=== PATIENT | female | born 1995 ===

== ENCOUNTER 2018-11-03 08:30 | Emergency (ER) | payer MEDICAID ==
[2018-11-03 08:40] VITALS: RESP 18; TEMP 97.9
[2018-11-03] MEDS ORDERED: Sodium Chloride 0.9% 500 ML IV STA (08:44)
--- NOTE | 2018-11-03 08:51 | ED PDOC ---
Arrival/HPI - General Chief Complaint: Abdominal Pain Time Seen by Provider: 11/03/18 08:43 Historian: Patient - History of Present Illness Narrative History of Present Illness (Text): 11/03/18 08:47 Ashley Alexis is a 23 year old female, with no significant past medical history, P:0, currently 6 weeks , who presents to the Emergency department for vaginal spotting. Patient states she was seen at the [facility] department on 11/01/2018 for vaginal bleeding, had a transvaginal US performed, and was discharged/advised to follow-up with OBGYN. Patient states she continues to have some vaginal spotting with associated mild lower abdominal cramping, became concerned, and came in for further evaluation. Patient denies any fever, nausea, vomiting, urinary symptoms, back pain, headache, dizziness, or any other complaints. Symptom Onset: Gradual Symptom Course: Unchanged Activities at Onset: Light Context: Home Past Medical History - Provider Review Nursing Documentation Reviewed: Yes - Psychiatric Hx Substance Use: No Family/Social History - Physician Review Nursing Documentation Reviewed: Yes Family/Social History: Unknown Family HX Smoking Status: Former Smoker Hx Alcohol Use: Yes Frequency of alcohol use: Socially Hx Substance Use: No Allergies/Home Meds Allergies/Adverse Reactions: Allergies No Known Allergies Allergy (Verified 11/03/18 08:40) Home Medications: Home Meds Medication Instructions Recorded Confirmed RX: No Known Home Med 11/03/18 11/03/18 Review of Systems - Physician Review All systems were reviewed & negative as marked: Yes - Review of Systems Constitutional: Normal. absent: Fevers Eyes: Normal ENT: Normal Respiratory: Normal. absent: SOB, Cough Cardiovascular: Normal. absent: Chest Pain Gastrointestinal: Abdominal Pain (+mild lower abdominal cramping). absent: Diarrhea, Nausea, Vomiting Genitourinary Female: Vaginal Bleeding Musculoskeletal: Normal. absent: Back Pain, Neck Pain Skin: Normal. absent: Rash Neurological: Normal. absent: Headache, Dizziness Endocrine: Normal Hemo/Lymphatic: Normal Psychiatric: Normal Physical Exam Vital Signs Reviewed: Yes Vital Signs Temp Pulse Resp BP Pulse Ox 11/03/18 08:38 97.9 F 80 18 109/76 97 Temperature: Afebrile Blood Pressure: Normal Pulse: Regular Respiratory Rate: Normal Appearance: Positive for: Well-Appearing, Non-Toxic, Comfortable Pain Distress: None Mental Status: Positive for: Alert and Oriented X 3 - Systems Exam Head: Present: Atraumatic, Normocephalic Pupils: Present: PERRL Extroacular Muscles: Present: EOMI Conjunctiva: Present: Normal Mouth: Present: Moist Mucous Membranes Neck: Present: Normal Range of Motion Respiratory/Chest: Present: Clear to Auscultation, Good Air Exchange. No: Respiratory Distress, Accessory Muscle Use Cardiovascular: Present: Regular Rate and Rhythm, Normal S1, S2. No: Murmurs Abdomen: No: Tenderness, Distention, Peritoneal Signs Back: Present: Normal Inspection Upper Extremity: Present: Normal Inspection. No: Cyanosis, Edema Lower Extremity: Present: Normal Inspection. No: Edema Neurological: Present: GCS=15, CN II-XII Intact, Speech Normal Skin: Present: Warm, Dry, Normal Color. No: Rashes Psychiatric: Present: Alert, Oriented x 3, Normal Insight, Normal Concentration Medical Decision Making ED Course and Treatment: 11/03/18 08:47 Impression: 23 year old female complaining of vaginal spotting and mild lower abdominal cramping. Plan: -- Transvaginal US -- Labs, Beta-HCG, blood type and screen -- Urinalysis -- IV fluids -- Reassess and disposition Progress Notes: 11/03/18 09:53 Transvaginal US: UTERUS: Uterus measures 8.5 x 4.0 x 4.6 cm. Normal in size and appearance. No intrauterine gestational sac. Endometrium measures 0.9 cm. CERVIX: Long and closed. No cervical abnormality seen. RIGHT OVARY: Measures 3.6 x 2.7 x 2.9 cm. No mass lesion. Normal flow. LEFT OVARY: Measures 3.5 x 1.9 x 2.6 cm. No solid mass. Normal flow. FREE FLUID: None. OTHER FINDINGS: None. IMPRESSION: No evidence of intrauterine gestation. Findings may represent early normal/a bnormal with ectopic not excluded. Close clinical follow-up with serial pelvic sonography and serum beta HCG levels is recommended. Asael Christianson MD Report Date : 11/03/2018 09:51:32 11/03/18 09:59 Case discussed with LISA Blank manager marketing communication, who is aware and agrees with plan. States pt can be discharged home with outpt f/u. 11/03/18 10:27 On re-evaluation, patient feels better and is in no acute distress. Discussed results patient, who expresses understanding. Patient refusing pelvic exam. Patient is stable for discharge. Patient was instructed to follow up with OBGYN/physician or return if symptoms worsen or new concerning symptoms arise. 11/03/18 10:41 pt with resutls from previous us. beta 1800 iup confirme.d today beta 500, no iup suspect complete ab. refuses pelvic. advise outpt fu. - Lab Interpretations I have reviewed the lab results: Yes - RAD Interpretation Radiology Orders: 11/03/18 08:44 TRANSVAGINAL [US] Stat Veterinarian Poultry: Radiologist - Medication Orders Current Medication Orders: Sodium Chloride (Sodium Chloride 0.9%) 500 mls @ 1,000 mls/hr IV .Q30M STA Stop: 11/03/18 09:13 - Scribe Statement The provider has reviewed the documentation as recorded by the Anhibmaria dolores Marinelli Provider Scribe Attestation: All medical record entries made by the Scribe were at my direction and personally dictated by me. I have reviewed the chart and agree that the record accurately reflects my personal performance of the history, physical exam, medical decision making, and the department course for this patient. I have also personally directed, reviewed, and agree with the discharge instructions and disposition. Disposition/Present on Arrival - Present on Arrival Any Indicators Present on Arrival: No History of DVT/PE: No History of Uncontrolled Diabetes: No Urinary Catheter: No History of Decub. Ulcer: No History Surgical Site Infection Following: None - Disposition Have Diagnosis and Disposition been Completed?: Yes Diagnosis: Complete miscarriage Disposition: HOME/ ROUTINE Disposition Time: 10:30 Patient Problems: Current Active Problems Problem Status Onset Complete miscarriage Acute Condition: STABLE Discharge Instructions (ExitCare): Miscarriage Additional Instructions: follow up with obgyn, return to er with worsening symptoms or concerns. Referrals: Shanika Morillo MD [Primary Care Provider] - Follow up with primary Jaylen Melendez [Medical Doctor] - Follow up with primary Forms: [email or web address] (Irish)
[2018-11-03 09:07] LABS: BASO # 0.01 K/mm3 (0.0-2.0); BASO % 0.1 % (0.0-3.0); EOS # 0.1 (0.0-0.7); EOS % 1.7 % (1.5-5.0); GRAN # 5.01 (1.4-6.5); GRAN % 71.6 % (50.0-68.0); HEMOGLOBIN 12.9 g/dL (12.0-16.0); LYMPH # 1.4 (1.2-3.4); LYMPH % 20.6 % (22.0-35.0); MEAN CELL VOLUME 88.3 fl (80.0-105.0); MEAN CORPUSCULAR HEMOGLOBIN 29.5 pg (25.0-35.0); MEAN CORPUSCULAR HGB CONC 33.4 g/dl (31.0-37.0); MEAN PLATELET VOLUME 10.3 fl (7.0-11.0); MONO # 0.4 (0.1-0.6); RBC 4.37 10^6/uL (3.5-6.1); RED CELL DISTRIBUTION WIDTH 12.8 % (11.5-14.5)
[2018-11-03 09:10] LABS: URINE BILIRUBIN NEGATIVE (NEGATIVE); URINE BLOOD LARGE (NEGATIVE); URINE GLUCOSE (UA) NEGATIVE (NEGATIVE); URINE LEUKOCYTE ESTERASE NEGATIVE Leu/uL (NEGATIVE); URINE PROTEIN TRACE mg/dL (<30 mg/dL); URINE UROBILINOGEN 0.2 E.U./dL (<1 E.U./dL)
[2018-11-03 09:12] LABS: URINE APPEARANCE CLEAR (CLEAR); URINE COLOR YELLOW (YELLOW)
[2018-11-03 09:14] LABS: INR 1.41; PARTIAL THROMBOPLASTIN TIME 27.9 Seconds (25.1-36.5); PROTHROMBIN TIME 16.3 SECONDS (9.4-12.5)
[2018-11-03 09:15] LABS: ALB/GLOB RATIO 1.4 (1.1-1.8); ALBUMIN 4.3 g/dL (3.0-4.8); ALT/SGPT 27 U/L (7-56); AST/SGOT 17 U/L (14-36); BLOOD UREA NITROGEN 9 mg/dL (7-21); GFR NON-AFRICAN AMERICAN > 60
[2018-11-03 09:34] LABS: URINE RBC 25 - 30 /hpf (0-2)
[2018-11-03 09:43] LABS: HCG,QUALITATIVE URINE POSITIVE (NEGATIVE)
--- NOTE | 2018-11-03 09:55 | US ---
Date of service: 11/03/2018 PROCEDURE: OB Pelvic Ultrasound HISTORY: and bleeding LMP: 09/10/2018 COMPARISON: None available. FINDINGS: UTERUS: Uterus measures 8.5 x 4.0 x 4.6 cm. Normal in size and appearance. No intrauterine gestational sac. Endometrium measures 0.9 cm. CERVIX: Long and closed. No cervical abnormality seen. RIGHT OVARY: Measures 3.6 x 2.7 x 2.9 cm. No mass lesion. Normal flow. LEFT OVARY: Measures 3.5 x 1.9 x 2.6 cm. No solid mass. Normal flow. FREE FLUID: None. OTHER FINDINGS: None. IMPRESSION: No evidence of intrauterine gestation. Findings may represent early normal/abnormal with ectopic not excluded. Close clinical follow-up with serial pelvic sonography and serum beta HCG levels is recommended.
[2018-11-03 10:40] VITALS: BP 110/78; PULSE 73; O2SAT 99
== END 2018-11-03 10:41 | disposition home or self-care (01) ==
LOC: ED 08:30
DX: O03.9 Complete or unspecified spontaneous abortion without complication (principal)
CPT/HCPCS: 76817; 80053; 81001; 84702; 84703; 85025; 85610; 85730; 86850; 86900; 99281; J7040